=== PATIENT | female | born 1955 | race Caucasian/White ===

== ENCOUNTER 2018-08-27 08:49 | Day surgery (SDC) | payer BC ==
[~2018-08-27 08:49] MED LIST: BUPIVACAINE HCL 0.75% INJ/PF (7.5 MG/1 ML) 10 ML SDV OS PRN; CHONDR SU A NA/HYALUR INTRAOC KIT (SURGICARE) ONE; DORZOLAMIDE HCL 2%/TIMOLOL MALEAT 0.5% OPH SOLN 10 ML OS PRN; EPINEPHRINE INJ/PF 1 MG/1 ML AMPULE ONE; KETOROLAC TROMETHAMINE 0.45% 4 DROP/0.4 ML DROPERETTE OS PRN; LIDOCAINE 1% INJ-PF (10 MG/ML) 30 ML SDV ONE; LIDOCAINE 1%/PHENYLEPHRINE 1.5% 1 ML VIAL ONE; LIDOCAINE 4% INJ/PF (40 MG/ML) 5 ML AMPUL OS PRN
[2018-08-27] MEDS: TETRACAINE HCL 0.5% OPH SOLN 0.6 ML DROPERETTE OS PRN ×2 (09:22→09:50)
[2018-08-27] MEDS: TROPICAMIDE 1% OPH SOLN 3 ML OS PRN ×2 (09:23→09:34)
[2018-08-27] MEDS: CYCLOPENTOLATE 0.2%/PHENYLEPHRINE 1% OPH SOLN 2 ML OS PRN ×2 (09:23→09:34)
[2018-08-27] MEDS: BESIFLOXACIN HCL 0.6% OPH SUSP 5 ML BOTTLE OS PRN ×4 (09:23→10:07)
[2018-08-27] MEDS ORDERED: MIDAZOLAM 2 MG/2 ML INJ ONE (09:53)
[2018-08-27] MEDS ORDERED: FENTANYL CITRATE INJ/PF 100 MCG/2 ML AMPUL ONE (09:54)
[2018-08-27] MEDS: TOBRAMYCIN SULFATE/DEXAMETH OPH OINTMENT 3.5 GM ONE ×2 (10:02→10:07)
== END 2018-08-27 10:50 | disposition home or self-care (01) ==
LOC: SC 08:49
PROVIDERS: ATTEND Ophthalmology
DX: H25.12 Age-related nuclear cataract, left eye (principal); I10 Essential (primary) hypertension; F17.210 Nicotine dependence, cigarettes, uncomplicated; Z79.899 Other long term (current) drug therapy
CPT/HCPCS: 66984; 00142; V2788; J2250; J3490 ×2; J0171; J3010; J2370; 142

== ENCOUNTER 2018-09-17 07:25 | Day surgery (SDC) | payer BC ==
[~2018-09-17 07:25] MED LIST changes: -BUPIVACAINE HCL 0.75% INJ/PF (7.5 MG/1 ML) 10 ML SDV OS PRN; +DORZOLAMIDE HCL 2%/TIMOLOL MALEAT 0.5% OPH SOLN 10 ML OD PRN; -DORZOLAMIDE HCL 2%/TIMOLOL MALEAT 0.5% OPH SOLN 10 ML OS PRN; +KETOROLAC TROMETHAMINE 0.45% 4 DROP/0.4 ML DROPERETTE OD PRN; -KETOROLAC TROMETHAMINE 0.45% 4 DROP/0.4 ML DROPERETTE OS PRN; -LIDOCAINE 1%/PHENYLEPHRINE 1.5% 1 ML VIAL ONE; -LIDOCAINE 4% INJ/PF (40 MG/ML) 5 ML AMPUL OS PRN; +PHENYLEPHRINE/KETOROLAC 1%-0.3% 4 ML VIAL ONE; +TOBRAMYCIN SULFATE/DEXAMETH OPH OINTMENT 3.5 GM ONE
[2018-09-17] MEDS: CYCLOPENTOLATE 0.2%/PHENYLEPHRINE 1% OPH SOLN 2 ML OD PRN ×3 (08:02→08:28)
[2018-09-17] MEDS: TROPICAMIDE 1% OPH SOLN 3 ML OD PRN ×3 (08:02→08:28)
[2018-09-17] MEDS: TETRACAINE HCL 0.5% OPH SOLN 0.6 ML DROPERETTE OD PRN ×3 (08:04→08:38)
[2018-09-17] MEDS ORDERED: MIDAZOLAM 2 MG/2 ML INJ ONE (08:41)
== END 2018-09-17 09:40 | disposition home or self-care (01) ==
LOC: SC 07:25
PROVIDERS: ATTEND Ophthalmology
DX: H25.11 Age-related nuclear cataract, right eye (principal); Z98.42 Cataract extraction status, left eye; Z79.899 Other long term (current) drug therapy; I10 Essential (primary) hypertension
CPT/HCPCS: 66984; 00142; V2788; J2250; J3490 ×3; C9447; 142; J0171